=== PATIENT | female | born 2000 | race Caucasian/White ===

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

== ENCOUNTER 2019-01-26 12:53 | Emergency (ER) | payer OTHER, MEDICAID ==
[~2019-01-26] VITALS: Ht 154.9 cm; Wt 102.3 kg
[~2019-01-26 12:53] MED LIST changes: +ONDA4TAB6 PO
[2019-01-26 13:43] LABS: BASO % 0.4 % (0.0-1.0); EOS # 0.1 10^3/uL (0.0-0.50); EOS % 1.2 % (0.0-3.0); HEMATOCRIT 42.1 % (36.0-47.0); HEMOGLOBIN 13.3 g/dl (12.0-15.5); LYMPH # 1.9 10^3/uL (1.5-6.5); LYMPH % 28.1 % (24.0-44.0); MEAN CORPUSCULAR HEMOGLOBIN 25.5 pg (27.0-33.0); MEAN CORPUSCULAR HGB CONC 31.6 g/dl (32.0-36.5); MEAN CORPUSCULAR VOLUME 80.8 fl (80.0-96.0); MONO # 0.4 10^3/uL (0.0-0.8); MONO % 6.4 % (0.0-5.0); NEUTROPHILS # 4.4 10^3/uL (1.8-7.7); NEUTROPHILS % 63.6 % (36.0-66.0); PLATELET COUNT, AUTOMATED 372 10^3/uL (150-450); RED BLOOD COUNT 5.21 10^6/uL (4.00-5.40); WHITE BLOOD COUNT 6.9 10^3/uL (4.0-10.0)
[2019-01-26 14:07] LABS: ALBUMIN 3.6 GM/DL (3.2-5.2); ALT/SGPT 23 U/L (12-78); BILIRUBIN,DIRECT 0.1 MG/DL (0.0-0.2); BILIRUBIN,TOTAL 0.4 MG/DL (0.2-1.0); BLOOD UREA NITROGEN 10 MG/DL (7-18); CARBON DIOXIDE LEVEL 26 MEQ/L (21-32); CHLORIDE LEVEL 109 MEQ/L (98-107); GLUCOSE, FASTING 83 MG/DL (70-100); LIPASE 127 U/L (73-393); POTASSIUM SERUM 4.6 MEQ/L (3.5-5.1); SODIUM LEVEL 140 MEQ/L (136-145); TOTAL PROTEIN 6.8 GM/DL (6.4-8.2)
[2019-01-26 16:29] VITALS: BP 120/65
--- NOTE | 2019-01-26 19:05 | REP ---
REASON: Pelvic cramping. PRIORS: 02/20/2018. Transvesical and transvaginal imaging was obtained. The uterus measures 7.8 x 3.2 x 4.3 cm. The parenchymal echo pattern is within normal limits. The endometrial echo complex is within normal limits measuring 6 mm in its greater thickness. Right ovary measures 5.0 x 3.6 x 3.5 cm. In the right ovary there is a 3.9 x 3.3 x 3.5 cm sized complex structure. The right ovarian RI is 0.57. Left ovary measures 2.1 x 1.1 x 1.3 cm and is within normal limits with an RI of 0.52. Urinary bladder measures 2.0 x 4.0 cm. IMPRESSION: Complex right ovarian cyst probably representing a hemorrhagic cyst. Two month followup is recommended. Electronically Signed by Umang Haas DO 01/27/2019 10:01 A
--- NOTE | 2019-02-02 20:38 | ED PDOC ---
Post-Departure Follow-Up dr alcazar and marcelo giron faxed formal repeort of pelvic us for fu Nubia Biswas MD Feb 02, 2019 20:38
== END 2019-01-26 16:44 | disposition home or self-care (01) ==
LOC: M ED 12:53
DX: N83.201 Unspecified ovarian cyst, right side (principal); F41.9 Anxiety disorder, unspecified

== ENCOUNTER → 2019-03-05 | Outpatient (CLI) | payer OTHER | LOC: M SMT 10:40 | PROVIDERS: ATTEND Obstetrics & Gynecology | DX: Z13.79 Encounter for other screening for genetic and chromosomal anomalies (principal) ==

== ENCOUNTER → 2019-05-14 | Outpatient (CLI) | payer OTHER ==
--- NOTE | 2019-05-14 16:36 | REP ---
PELVIC ULTRASOUND: Real-time sonographic evaluation of the pelvis performed utilizing transabdominal technique. The bladder measures 8.2 x 5.3 x 8.6 cm. The uterus measures 8.6 x 3.3 x 4.5 cm. Endometrial thickness is 2 mm with no endometrial fluid collection. Ovaries are normal in size and echotexture, right ovary measuring 3.4 x 1.2 x 1.6 cm and left ovary 3.4 x 1.3 x 1.8 cm. The previously noted right ovarian cyst has resolved. There is no current evidence of adnexal mass or cyst. No free fluid is seen. There is no torsion of either ovary, blood flow is seen in each ovary with duplex Doppler evaluation. IMPRESSION: Negative pelvic ultrasound. Previously noted right ovarian cyst has resolved. Electronically Signed by Minesh Nails MD 05/14/2019 04:39 P
== END ==
LOC: M RAD 15:29
PROVIDERS: ATTEND Obstetrics & Gynecology
DX: N83.209 Unspecified ovarian cyst, unspecified side (principal)

== ENCOUNTER 2019-08-06 06:12 | Emergency (ER) | payer OTHER, MEDICAID ==
[~2019-08-06] VITALS: Ht 154.9 cm; Wt 114.3 kg
[~2019-08-06 06:12] MED LIST changes: -LIDO1SOL8 MT; +LIDO2SOL17 MT
[2019-08-06] MEDS ORDERED: birth control (06:14)
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
[2019-08-06 07:52] LABS: HEMATOCRIT 42.1 % (36.0-47.0); HEMOGLOBIN 13.1 g/dl (12.0-15.5); MEAN CORPUSCULAR HEMOGLOBIN 26.2 pg (27.0-33.0); MEAN CORPUSCULAR HGB CONC 31.1 g/dl (32.0-36.5); MEAN CORPUSCULAR VOLUME 84.2 fl (80.0-96.0); PLATELET COUNT, AUTOMATED 390 10^3/uL (150-450); WHITE BLOOD COUNT 8.3 10^3/uL (4.0-10.0)
[2019-08-06] MEDS ORDERED: NS 1,000 ML IV ONE (08:00)
[2019-08-06] MEDS ORDERED: KETOROLAC 30 MG/ML VIAL (J1885) IV ONE (08:30)
[2019-08-06] MEDS ORDERED: KETO10TAB PO (13:21)
[2019-08-06 14:13] VITALS: BP 123/64
== END 2019-08-06 14:15 | disposition home or self-care (01) ==
LOC: M ED 06:12
DX: R20.2 Paresthesia of skin (principal); V47.0XXA Car driver injured in collision with fixed or stationary object in nontraffic accident, initial encounter; Y92.9 Unspecified place or not applicable; Y93.9 Activity, unspecified; Y99.9 Unspecified external cause status; Z79.3 Long term (current) use of hormonal contraceptives
CPT/HCPCS: 70450; 72125; 80047; 84702; 85027; 96361; 96374; 99285; J1885

== ENCOUNTER → 2019-11-30 | Outpatient (CLI) | payer OTHER, MEDICAID ==
[~2019-11-30] MED LIST changes: +KETO10TAB PO; +birth control
== END ==
LOC: M LABSMTC 08:17
PROVIDERS: ATTEND Orthopaedic Surgery Hand Surgery
DX: Z03.818 Encounter for observation for suspected exposure to other biological agents ruled out (principal); Z11.59 Encounter for screening for other viral diseases

== ENCOUNTER → 2019-12-03 | Outpatient (REF) | payer OTHER, MEDICAID | LOC: M LAB REF 08:28 | PROVIDERS: ATTEND Orthopaedic Surgery Hand Surgery | DX: M67.432 Ganglion, left wrist (principal) ==

== ENCOUNTER → 2020-10-26 | Outpatient (CLI) | payer MEDICAID, OTHER ==
--- NOTE | 2020-10-26 15:19 | REP ---
INDICATION: PELVIC PAIN W/POCOS ? OVARION CYST COMPARISON: 05/14/2019 TECHNIQUE: Transabdominal pelvic ultrasound followed by transvaginal examination for better evaluation of the endometrium and adnexa with color Doppler evaluation of the ovaries. FINDINGS: Bladder is unremarkable and measures 4.9 x 2.1 x 4.1 cm. Heterogeneous anteverted uterus measures 7.9 x 3.3 x 4.2 cm. The endometrial complex measures 6.0 mm thickness. No discrete uterine or endometrial abnormalities are appreciated. Bilateral ovaries are normal in appearance and vascularity without evidence for torsion. Right ovary measures 2.2 x 2.1 x 2.2 cm; R I = 0.46. Left ovary measures 3.6 x 2.9 x 2.2 cm with 2.9 cm physiologic cyst; R I = 0.44. No pelvic fluid or adnexal mass lesion. IMPRESSION: 2.9 cm left ovarian cyst likely physiologic. Correlation with physical examination recommended. If necessary consider re-evaluation in 4-6 weeks to evaluate for resolution. <Electronically signed by Emigdio López > 10/26/20 [id number]
== END ==
LOC: M RAD 14:35
PROVIDERS: ATTEND Physician Assistant Medical
DX: R10.2 Pelvic and perineal pain (principal)

== ENCOUNTER → 2022-04-22 | Outpatient (REF) ==
[~2022-04-22] MED LIST changes: +DOXY-443 PO; -DOXY100C37 PO
[2022-04-22 10:16] LABS: RSV AMPLIFICATION NEGATIVE (NEGATIVE)
== END ==
LOC: M EMP 08:59
PROVIDERS: ATTEND Family Medicine
DX: Z20.822 Contact with and (suspected) exposure to COVID-19 (principal)

== ENCOUNTER → 2022-04-28 | Outpatient (REF) | LOC: M LABSMTC 11:57 | PROVIDERS: ATTEND Family Medicine | DX: Z20.822 Contact with and (suspected) exposure to COVID-19 (principal) ==

== ENCOUNTER → 2022-05-02 | Outpatient (CLI) | payer OTHER | LOC: M RAD 13:48 | PROVIDERS: ATTEND Internal Medicine Endocrinology, Diabetes & Metabolism | DX: E05.00 Thyrotoxicosis with diffuse goiter without thyrotoxic crisis or storm (principal) | CPT/HCPCS: 78012; A9516 ==

== ENCOUNTER 2022-06-13 12:42 | Emergency (ER) | payer OTHER ==
[~2022-06-13] VITALS: Ht 154.9 cm; Wt 109.1 kg
[2022-06-13 12:43] VITALS: BP 146/94
[2022-06-13] MEDS ORDERED: IBUP-1022 (14:14)
== END 2022-06-13 14:43 | disposition home or self-care (01) ==
LOC: M ED 12:42
DX: S93.402A Sprain of unspecified ligament of left ankle, initial encounter (principal); Y92.009 Unspecified place in unspecified non-institutional (private) residence as the place of occurrence of the external cause; Y93.89 Activity, other specified; Y99.9 Unspecified external cause status; Z87.42 Personal history of other diseases of the female genital tract

== ENCOUNTER → 2022-06-16 | Outpatient (CLI) | payer OTHER ==
[~2022-06-16] MED LIST changes: +IBUP-1022
[2022-06-16 14:37] LABS: FREE T4 0.83 NG/DL (0.89-1.76); THYROID STIMULATING HORMONE 1.583 uIU/ML (0.55-4.78); TOTAL T3 123.8 NG/DL (60.0-181.0)
== END ==
LOC: M LAB 13:35
PROVIDERS: ATTEND Internal Medicine Endocrinology, Diabetes & Metabolism
DX: E05.00 Thyrotoxicosis with diffuse goiter without thyrotoxic crisis or storm (principal)

== ENCOUNTER → 2022-07-29 | Outpatient (CLI) | payer OTHER ==
[~2022-07-29] MED LIST changes: +LIDO15SO4 MT; -LIDO2SOL17 MT
[2022-07-29 15:41] LABS: FREE T4 0.91 NG/DL (0.89-1.76); THYROID STIMULATING HORMONE 2.545 uIU/ML (0.55-4.78); TOTAL T3 139.4 NG/DL (60.0-181.0)
== END ==
LOC: M LAB 14:36
PROVIDERS: ATTEND Internal Medicine Endocrinology, Diabetes & Metabolism
DX: O90.5 Postpartum thyroiditis (principal)

== ENCOUNTER → 2022-09-15 | Outpatient (REF) ==
[2022-09-15 15:21] LABS: RSV AMPLIFICATION NEGATIVE (NEGATIVE)
== END ==
LOC: M LABSMTC 09:58
PROVIDERS: ATTEND Family Medicine
DX: Z00.00 Encounter for general adult medical examination without abnormal findings (principal)

== ENCOUNTER → 2022-10-07 | Outpatient (CLI) | payer OTHER ==
[~2022-10-07] MED LIST changes: +LIDO15SO MT; -LIDO15SO4 MT
[2022-10-07 09:47] LABS: BASO % 0.6 % (0.0-1.0); EOS # 0.1 10^3/uL (0.0-0.5); EOS % 1.4 % (0.0-3.0); HEMOGLOBIN 12.8 g/dl (12.0-15.5); LYMPH % 28.5 % (24.0-44.0); MEAN CORPUSCULAR HGB CONC 30.5 g/dl (32.0-36.5); MEAN CORPUSCULAR VOLUME 78.7 fl (80.0-96.0); MONO # 0.5 10^3/uL (0.0-0.8); MONO % 7.2 % (2.0-8.0); NEUTROPHILS # 4.4 10^3/uL (1.5-8.5); NEUTROPHILS % 62.2 % (36.0-66.0); PLATELET COUNT, AUTOMATED 425 10^3/uL (150-450); RED BLOOD COUNT 5.34 10^6/uL (4.00-5.40); WHITE BLOOD COUNT 7.1 10^3/uL (4.0-10.0)
[2022-10-07 10:23] LABS: ALBUMIN 3.8 G/DL (3.2-5.2); ALKALINE PHOSPHATASE 83 U/L (46-116); ALT/SGPT 17 U/L (7.0-40); AST/SGOT 12 U/L (<34); BILIRUBIN,TOTAL 0.3 MG/DL (0.3-1.2); BLOOD UREA NITROGEN 12 MG/DL (9-23); CARBON DIOXIDE LEVEL 28 MMOL/L (20-31); CHLORIDE LEVEL 106 MMOL/L (98-107); CHOLESTEROL LEVEL 153 MG/DL (<200); CHOLESTEROL RISK RATIO 2.76 (<5); CREATININE FOR GFR 0.57 MG/DL (0.55-1.30); GLOMERULAR FILTRATION RATE > 60.0 (>60); GLUCOSE, FASTING 91 MG/DL (60-100); HDL CHOLESTEROL 55.4 MG/DL (>40); IRON (FE) 28 UG/DL (50-170); LDL CHOLESTEROL 84.8 MG/DL (<100); NON-HDL-C 97.6 MG/DL; PERCENT SATURATION 7.7 % (13.2-45.0); POTASSIUM SERUM 4.6 MMOL/L (3.5-5.1); SODIUM LEVEL 140 MMOL/L (136-145); TOTAL IRON BINDING CAPACITY 362 UG/DL (250-425); TOTAL PROTEIN 6.9 G/DL (5.7-8.2); TRIGLYCERIDES LEVEL 64 MG/DL (<150)
[2022-10-07 10:24] LABS: FERRITIN 14.7 NG/ML (7.3-270.7); THYROID STIMULATING HORMONE 2.241 uIU/ML (0.55-4.78); TOTAL 25(OH) VITAMIN D 9.7 NG/ML (20.0-100.0)
[2022-10-07 10:25] LABS: FOLATE 18.9 NG/ML (>5.4); VITAMIN B12 LEVEL 312 PG/ML (211-911)
== END ==
LOC: M RAD 09:03
PROVIDERS: ATTEND Registered Nurse
DX: Z01.810 Encounter for preprocedural cardiovascular examination (principal); E66.01 Morbid (severe) obesity due to excess calories; D51.9 Vitamin B12 deficiency anemia, unspecified; Z13.220 Encounter for screening for lipoid disorders; E55.9 Vitamin D deficiency, unspecified

== ENCOUNTER → 2022-11-08 | Outpatient (CLI) | payer OTHER | LOC: M RAD 06:51 | PROVIDERS: ATTEND Registered Nurse | DX: Z01.818 Encounter for other preprocedural examination (principal); E66.01 Morbid (severe) obesity due to excess calories; K76.0 Fatty (change of) liver, not elsewhere classified; K80.20 Calculus of gallbladder without cholecystitis without obstruction ==

== ENCOUNTER → 2022-11-28 | Outpatient (REF) | LOC: M EMP 09:37 | PROVIDERS: ATTEND Family Medicine | DX: Z11.52 Encounter for screening for COVID-19 (principal); U07.1 COVID-19 ==

== ENCOUNTER → 2022-12-16 | Outpatient (REF) | LOC: M LAB 15:45 | PROVIDERS: ATTEND Nurse Practitioner Adult Health | DX: Z02.89 Encounter for other administrative examinations (principal) ==

== ENCOUNTER → 2023-01-30 | Outpatient (CLI) | payer OTHER | LOC: M RAD 11:32 | PROVIDERS: ATTEND Nurse Practitioner Family | DX: N83.291 Other ovarian cyst, right side (principal); R10.2 Pelvic and perineal pain; Z97.5 Presence of (intrauterine) contraceptive device ==

== ENCOUNTER → 2024-01-11 | Outpatient (CLI) | payer MEDICAID, OTHER ==
[~2024-01-11] MED LIST changes: +BIOT1CAP2 PO; +DOXY-323 PO; -DOXY-443 PO; -LIDO15SO MT; +LIDO15SO8 MT; +ONDA-282 PO; -ONDA4TAB6 PO; +PROBCAP14 PO; +SPIR100T3 PO; +THERTAB52 PO; +VITA100093 PO; +[UNRECOGNIZED DRUG - CODE] EX; +mirena
== END ==
LOC: M WHC 07:23
PROVIDERS: ATTEND Nurse Practitioner Family
DX: N64.4 Mastodynia (principal); N63.10 Unspecified lump in the right breast, unspecified quadrant

== ENCOUNTER → 2024-01-19 | Outpatient (CLI) | payer OTHER ==
[2024-01-19 17:36] LABS: BASO % 0.5 % (0.0-1.0); EOS # 0.1 10^3/uL (0.0-0.5); EOS % 1.1 % (0.0-3.0); HEMATOCRIT 41.5 % (36.0-47.0); HEMOGLOBIN 13.2 g/dl (12.0-15.5); LYMPH # 2.5 10^3/uL (1.5-5.0); LYMPH % 33.5 % (24.0-44.0); MEAN CORPUSCULAR HEMOGLOBIN 27.4 pg (27.0-33.0); MEAN CORPUSCULAR HGB CONC 31.8 g/dl (32.0-36.5); MEAN CORPUSCULAR VOLUME 86.1 fl (80.0-96.0); MONO # 0.6 10^3/uL (0.0-0.8); MONO % 7.4 % (2.0-8.0); NEUTROPHILS # 4.3 10^3/uL (1.5-8.5); NEUTROPHILS % 57.2 % (36.0-66.0); PLATELET COUNT, AUTOMATED 339 10^3/uL (150-450); RED BLOOD COUNT 4.82 10^6/uL (4.00-5.40); WHITE BLOOD COUNT 7.5 10^3/uL (4.0-10.0)
[2024-01-19 18:14] LABS: ALBUMIN 3.8 G/DL (3.2-5.2); ALKALINE PHOSPHATASE 77 U/L (46-116); ALT/SGPT 19 U/L (7.0-40); AST/SGOT 10 U/L (<34); BILIRUBIN,TOTAL 0.3 MG/DL (0.3-1.2); BLOOD UREA NITROGEN 9 MG/DL (9-23); CALCIUM LEVEL 9.1 MG/DL (8.5-10.1); CARBON DIOXIDE LEVEL 26 MMOL/L (20-31); CHLORIDE LEVEL 106 MMOL/L (98-107); CREATININE FOR GFR 0.58 MG/DL (0.55-1.30); FERRITIN 17.7 NG/ML (7.3-270.7); GLOMERULAR FILTRATION RATE > 60.0 (>60); GLUCOSE, FASTING 80 MG/DL (60-100); IRON (FE) 26 UG/DL (50-170); POTASSIUM SERUM 4.4 MMOL/L (3.5-5.1); SODIUM LEVEL 139 MMOL/L (136-145); THYROID STIMULATING HORMONE 0.843 uIU/ML (0.55-4.78); TOTAL PROTEIN 6.6 G/DL (5.7-8.2); VITAMIN B12 LEVEL 286 PG/ML (211-911)
[2024-01-19 18:24] LABS: TOTAL 25(OH) VITAMIN D 25.4 NG/ML (20.0-100.0)
== END ==
LOC: M LAB 16:14
PROVIDERS: ATTEND Registered Nurse
DX: E66.01 Morbid (severe) obesity due to excess calories (principal)

== ENCOUNTER → 2024-02-16 | Outpatient (REF) | LOC: M EMP 09:25 | PROVIDERS: ATTEND Family Medicine | DX: Z11.52 Encounter for screening for COVID-19 (principal) ==

== ENCOUNTER 2024-04-07 08:22 | Emergency (ER) | payer MEDICAID, OTHER ==
[~2024-04-07] VITALS: Ht 154.9 cm; Wt 99.9 kg
[~2024-04-07 08:22] MED LIST changes: -DOXY-323 PO; +DOXY-441 PO
[2024-04-07] MEDS ORDERED: BACTDSTA (08:37)
[2024-04-07] MEDS ORDERED: TRETPOW (08:37)
[2024-04-07] MEDS: NITROFURANTOIN (MACROBID) 100 MG CAP PO ONE (10:40)
[2024-04-07] MEDS: PHENAZOPYRIDINE 100 MG TAB PO ONE (10:40)
[2024-04-07 10:54] VITALS: BP 137/95; TEMP 97.6; O2SAT 98
[2024-04-07] MEDS ORDERED: PYRI1TAB5 PO (11:45)
[2024-04-07] MEDS ORDERED: MACR100C43 PO (11:45)
[2024-04-07 12:01] LABS: HIV 1&2 SCREEN NEGATIVE (NEGATIVE)
[2024-04-07 12:06] LABS: Trichomonas vaginalis (AMP) NOT DETECTED (NEGATIVE)
[2024-04-07 12:30] LABS: GC DNA AMPLIFICATION NEGATIVE (NEGATIVE)
== END 2024-04-07 10:55 | disposition home or self-care (01) ==
LOC: M ED 08:22
DX: N39.0 Urinary tract infection, site not specified (principal); Z90.49 Acquired absence of other specified parts of digestive tract; Z88.5 Allergy status to narcotic agent; Z98.84 Bariatric surgery status; Z79.2 Long term (current) use of antibiotics; Z79.899 Other long term (current) drug therapy

== ENCOUNTER 2024-06-04 10:14 | Emergency (ER) | payer OTHER ==
[~2024-06-04] VITALS: Ht 154.9 cm; Wt 92.7 kg
[~2024-06-04 10:14] MED LIST changes: +BACTDSTA; +MACR100C43 PO; +PYRI1TAB5 PO; +TRETPOW
[2024-06-04 12:31] LABS: BASO % 0.3 % (0.0-1.0); EOS % 0.1 % (0.0-3.0); HEMATOCRIT 42.5 % (36.0-47.0); LYMPH # 1.2 10^3/uL (1.5-5.0); LYMPH % 12.5 % (24.0-44.0); MEAN CORPUSCULAR HEMOGLOBIN 27.9 pg (27.0-33.0); MEAN CORPUSCULAR HGB CONC 32.9 g/dl (32.0-36.5); MEAN CORPUSCULAR VOLUME 84.8 fl (80.0-96.0); MONO # 0.5 10^3/uL (0.0-0.8); MONO % 4.5 % (2.0-8.0); NEUTROPHILS # 8.2 10^3/uL (1.5-8.5); NEUTROPHILS % 82.3 % (36.0-66.0); PLATELET COUNT, AUTOMATED 307 10^3/uL (150-450); RED BLOOD COUNT 5.01 10^6/uL (4.00-5.40); WHITE BLOOD COUNT 9.9 10^3/uL (4.0-10.0)
[2024-06-04 13:01] LABS: LIPASE 47 U/L (12-53)
[2024-06-04 13:03] LABS: ALBUMIN 3.8 G/DL (3.2-5.2); ALKALINE PHOSPHATASE 79 U/L (35-104); ALT/SGPT 18 U/L (7.0-40); AST/SGOT 12 U/L (<34); BILIRUBIN,DIRECT 0.2 MG/DL (<0.4); BILIRUBIN,TOTAL 0.6 MG/DL (0.3-1.2); BLOOD UREA NITROGEN 10 MG/DL (9-23); CALCIUM LEVEL 9.6 MG/DL (8.5-10.1); CARBON DIOXIDE LEVEL 26 MMOL/L (20-31); CHLORIDE LEVEL 107 MMOL/L (98-107); CREATININE FOR GFR 0.65 MG/DL (0.55-1.30); GLOMERULAR FILTRATION RATE > 60.0 (>60); GLUCOSE, FASTING 82 MG/DL (60-100); POTASSIUM SERUM 4.5 MMOL/L (3.5-5.1); SODIUM LEVEL 142 MMOL/L (136-145); TOTAL PROTEIN 6.9 G/DL (5.7-8.2)
[2024-06-04 13:17] LABS: HCG, SERUM QUALITATIVE NEGATIVE (NEGATIVE)
[2024-06-04] MEDS: ONDANSETRON 4MG 2ML VIAL IV ONE (13:25)
[2024-06-04] MEDS: KETOROLAC 30 MG/ML 1ML VIAL IV ONE (13:29)
[2024-06-04 13:34] LABS: RSV AMPLIFICATION NEGATIVE (NEGATIVE)
[2024-06-04] MEDS ORDERED: ISOVUE-370 76% 100ML VIAL As Ordered ONE (14:33)
[2024-06-04 16:24] VITALS: BP 119/72; TEMP 97.6; O2SAT 98
== END 2024-06-04 16:30 | disposition home or self-care (01) ==
LOC: M ED 10:14
DX: R55 Syncope and collapse (principal); N83.02 Follicular cyst of left ovary; Z90.49 Acquired absence of other specified parts of digestive tract; Z98.84 Bariatric surgery status; Z88.5 Allergy status to narcotic agent; Z79.899 Other long term (current) drug therapy
CPT/HCPCS: 70450; 74177; 80048; 80076; 83690; 84703; 85025; 87631; 93005; 96374; 96375; 99284; J1885; J2405; Q9967

== ENCOUNTER → 2025-03-22 | Outpatient (RCR) ==
[~2025-03-22] MED LIST changes: -IBUP-1022; +IBUP600T42
== END ==
LOC: M EMPSKH 03-04 15:03
PROVIDERS: ATTEND Family Medicine
DX: Z20.828 Contact with and (suspected) exposure to other viral communicable diseases (principal)